=== PATIENT | male | born 1990 ===

== ENCOUNTER 2019-02-08 14:29 | Emergency (ER) | payer OTHER ==
[~2019-02-08] VITALS: Ht 177.8 cm; Wt 80.7 kg
== END 2019-02-08 19:47 | disposition home or self-care (01) ==
LOC: ER 14:29
DX: J11.1 Influenza due to unidentified influenza virus with other respiratory manifestations (principal); B96.0 Mycoplasma pneumoniae [M. pneumoniae] as the cause of diseases classified elsewhere

== ENCOUNTER 2019-05-18 14:11 | Emergency (ER) | payer OTHER ==
[~2019-05-18] VITALS: Ht 177.8 cm; Wt 81.2 kg
== END 2019-05-18 16:38 | disposition home or self-care (01) ==
LOC: ER 14:11
DX: Z91.410 Personal history of adult physical and sexual abuse (principal)

== ENCOUNTER 2021-08-18 04:36 | Emergency (ER) | payer OTHER ==
[~2021-08-18] VITALS: Ht 177.8 cm; Wt 83.9 kg
[2021-08-18] MEDS ORDERED: VISTARIL50 MG PO (08:01)
[2021-08-18] MEDS ORDERED: XOPENEX0.63 MG/3 IH (08:01)
== END 2021-08-18 08:15 ==
LOC: ER 04:36
DX: F41.9 Anxiety disorder, unspecified (principal); R06.02 Shortness of breath